=== PATIENT | female | born 2000 | race African-American/Black ===

== ENCOUNTER 2022-04-30 02:45 | Emergency (ER) | payer MEDICAID ==
[2022-04-30] MEDS ORDERED: Ibuprofen 600 MG TAB ONE (03:10)
== END 2022-04-30 03:39 | disposition home or self-care (01) ==
LOC: MADERS 02:45
DX: J03.90 Acute tonsillitis, unspecified (principal); B34.9 Viral infection, unspecified; F17.210 Nicotine dependence, cigarettes, uncomplicated; Z20.822 Contact with and (suspected) exposure to COVID-19
CPT/HCPCS: 87430; 99283; U0003; U0005

== ENCOUNTER 2022-06-02 21:36 | Emergency (ER) | payer MEDICAID, OTHER, SELFPAY ==
[2022-06-02] MEDS ORDERED: Ibuprofen 800 MG TAB ONE (22:14)
== END 2022-06-02 22:50 | disposition home or self-care (01) ==
LOC: MADERS 21:36
DX: R51.9 Headache, unspecified (principal); R50.9 Fever, unspecified; R19.7 Diarrhea, unspecified; F17.210 Nicotine dependence, cigarettes, uncomplicated; Z20.822 Contact with and (suspected) exposure to COVID-19
CPT/HCPCS: 99284; U0003; U0005

== ENCOUNTER 2024-04-23 19:02 | Emergency (ER) | payer OTHER, SELFPAY ==
[2024-04-23 19:53] LABS: Bilirubin Small (Negative); Blood, Urine Moderate (Negative); Clarity Cloudy (Clear); Glucose, Urine (Dipstick) Negative (Negative); Ketone, Urine Negative (Negative); Leukocyte Small (Negative); Nitrite Negative (Negative); Protein, Urine (Dipstick) 30 mg/dL (Neg-Trace); Specific Gravity, Urine 1.025 (1.005-1.030)
[2024-04-23 19:54] LABS: Bacteria/HPF 1+ HPF (None Seen); CAUTI Indications for Culture Dysuria,urgency,freq; Mucous/LPF 2+ LPF (<2+); RBC/HPF 21-50 HPF (0-3); WBC/HPF Greater than 50 HPF (0-3); Yeast-Budding Rare HPF (None Seen)
[2024-04-23 19:55] LABS: Urine Culture Reflex Yes Yes
[2024-04-23 20:33] LABS: ALT (SGPT) 34 U/L (8-55); AST (SGOT) 32 U/L (5-34); Albumin 3.8 g/dL (3.5-5.0); Alkaline Phosphatase 78 U/L (40-110); Anion Gap 16 mmol/L (10-20); BUN (Urea Nitrogen) 5 mg/dL (7.0-18.7); Bilirubin, Total 0.7 mg/dL (0.2-1.2); Calc. Creatinine Clearance 0 mL/min (70-130); Calcium 9.2 mg/dL (7.8-10.44); Carbon Dioxide 23 mmol/L (22-29); Chloride 101 mmol/L (98-107); Estimated GFR 107; Globulin 4.1 g/dL (2.4-3.5); Glucose 108 mg/dL (70-105); Protein, Total 7.9 g/dL (6.0-8.3); Sodium 136 mmol/L (136-145)
[2024-04-23 20:34] LABS: BHCG - Serum Negative (NEGATIVE); Pregs Control Background? CLEAR/WHITE (CLR/WHITE); Pregs Control Bar Appear? YES (CONTROL BAR)
[2024-04-23 20:41] LABS: Influenza A by NAA Not Detected (NotDetected); Influenza B by NAA Not Detected (NotDetected); SARS-CoV-2 NAA Rapid Test Not Detected (NotDetected)
[2024-04-23 20:44] LABS: Hematocrit 40.7 % (36.0-47.0); Hemoglobin 12.7 g/dL (12.0-16.0); Lymphocytes 16 % (21-51); MDiff Complete? YES; Mean Corpuscular HGB CONC 31.3 g/dL (32.0-36.0); Mean Corpuscular Volume 92.6 fl (78.0-98.0); Mean Platelet Volume 6.8 fL (7.4-10.4); Monocytes 14 % (0-10); Neutrophil 70 % (42-75); Platelet Count 220 10x3/uL (130-400); Red Blood Cell (RBC) Count 4.39 mill/uL (4.20-5.40); White Blood Cell (WBC) Count 23.1 10x3/uL (4.8-10.8)
[2024-04-23] MEDS ORDERED: Ketorolac Tromethamine 30 MG (1 mL) VIAL ONE (20:55)
[2024-04-23] MEDS ORDERED: cefTRIAXone (ROCEPHIN) 1 GM VIAL ONE (20:55)
[2024-04-23] MEDS ORDERED: Fluconazole 100 MG TAB ONE (21:26)
== END 2024-04-23 21:53 | disposition home or self-care (01) ==
LOC: MADERS 19:02
DX: N39.0 Urinary tract infection, site not specified (principal); Z55.6 Problems related to health literacy; Z87.891 Personal history of nicotine dependence
CPT/HCPCS: 80053; 81001; 84443; 84703; 85025; 87077; 87086; 87186; 93005; 96361; 96365; 96375; J0696; J1885

== ENCOUNTER 2024-06-05 18:09 | Emergency (ER) | payer SELFPAY | END 2024-06-05 18:49 | disposition home or self-care (01) | LOC: MADERS 18:09 | DX: T19.2XXA Foreign body in vulva and vagina, initial encounter (principal); Z87.891 Personal history of nicotine dependence | CPT/HCPCS: 99283 ==